=== PATIENT | male | born 1970 | race Caucasian/White ===

== ENCOUNTER → 2020-07-18 06:51 | Outpatient (CLI) | payer OTHER, SELFPAY ==
--- NOTE | 2020-07-18 | DI.ECHO.S_ITS ---
[facility]---------+ [facility] +---------+ : : [address] : [address] : : : : [id number] : : : : Phone: [phone]+ Echocardiogram Report + + :Name: WILLIE CHILDS Study Date: 07/18/2020 Height: 78 in : :[facility] Weight: 225 lb : : Gender: Male BSA: 2.4 m2 : :: 1970 Age: 49 yrs BP: 188/98 mmHg: :Reason For Study: Encounter for administrative examinations : :Ordering Physician: HETAL, : :PRASANNA Performed By: Juliana Newton : :Referring: PRASANNA FONG : + + Interpretation Summary The left ventricle is normal in size, wall thickness, and systolic function without any focal wall motion abnormality with the ejection fraction estimated at 55 to 60%. Diastolic function appears normal. The right ventricle appears normal. Pulmonary artery pressure cannot be estimated but CVP is likely around 3 mmHg. Both atria are normal in size. There is no significant valvular abnormality. This is a normal echocardiogram. It is notable with the patient was hypertensive at the time of the exam. Procedure: A two-dimensional transthoracic echocardiogram with color flow and Doppler was performed. The study quality was technically adequate. There is no prior echocardiogram noted for this patient. The patient was in sinus rhythm with heart rates between 55-70 bpm during the exam. Left Ventricle: The left ventricle appears normal in size, wall thickness, and systolic function without any focal wall motion abnormalities. The ejection fraction is estimated to be 55-60%. Diastolic parameters suggest probable normal left ventricular diastolic function and normal filling pressures. Right Ventricle: The right ventricle is normal in size and function. Atria: Both atria are normal in size. There is no Doppler evidence for an interatrial shunt. Mitral Valve: The mitral valve is normal in structure and function. There is no mitral regurgitation noted. Aortic Valve: The aortic valve is trileaflet. The aortic valve opens well. There is no aortic valve stenosis. No aortic regurgitation is present. Tricuspid Valve: The tricuspid valve is normal in structure and function. There is trace tricuspid regurgitation. Pulmonary artery pressures cannot be estimated because of the lack of a measurable TR jet velocity but the IVC suggests a CVP of around 3 mmHg. Pulmonic Valve: The pulmonic valve is not well visualized. There is no pulmonic valvular regurgitation. There is no significant valvular heart disease. Great Vessels: The aortic root is normal size. The ascending aorta could not be visualized. The IVC is of normal diameter and collapses greater than 50% with a sniff. This suggests a low right atrial pressure of 3 mm Hg. Pericardium/ Pleura There is no pericardial effusion. There is no pleural effusion. MMode/2D Measurements & Calculations LVIDd: 5.5 cm LVOT diam: 2.6 cm LVIDs: 3.7 cm Ao root diam: 3.6 cm FS: 32.2 % Ao Arch Diam (Prox Trans): 2.3 cm EPSS: 0.81 cm IVSd: 0.83 cm LVPWd: 1.0 cm LV lambert. diameter/BSA (cm/m^2): 2.3 LV sys. diameter/BSA (cm/m^2): 1.6 LA A2 area: 23.1 cm2 RA long axis: 4.9 cm LA A4 area: 15.5 cm2 RA area: 16.7 cm2 LA length (vol): 5.4 cm RA vol: 48.5 ml LA vol: 56.5 ml RA : 20.4 ml/m2 LA vol index: 23.8 ml/m2 IVC diam: 1.8 cm RVD1 (basal): 3.9 cm TAPSE: 2.2 cm Doppler Measurements & Calculations Ao V2 max: 139.9 cm/sec LVOT Max Moo: 80.1 cm/sec Ao V2 mean: 91.9 cm/sec LV V1 max P.6 mmHg Ao max P.8 mmHg LV V1 VTI: 16.0 cm Ao mean P.9 mmHg CINDY(I,D): 3.2 cm2 Ao V2 VTI: 27.3 cm CINDY(V,D): 3.1 cm2 sev ratio: 0.58 CINDY indexed to BSA (cm^2/m^2): 1.3 MV E max moo: 53.8 cm/sec PA V2 max: 65.9 cm/sec MV A max moo: 49.4 cm/sec PA V2 mean: 46.6 cm/sec MV E/A: 1.1 PA mean P.98 mmHg Med Peak E' Moo: 9.0 cm/sec PA pr(Accel): 19.1 mmHg E/E' med: 6.0 Lat Peak E' Moo: 11.6 cm/sec E/E' lat: 4.6 E/e' average: 5.3 MV dec time: 0.22 sec SV(LVOT): 87.2 ml Reading Physician:09:24 AM
== END ==
PROVIDERS: PCP Family Medicine; Referring Provider Family Medicine; Visit Provider Family Medicine
DX: Z02.9 Encounter for administrative examinations, unspecified (principal)
CPT/HCPCS: 93306

== ENCOUNTER → 2020-07-19 08:55 | Outpatient (CLI) | payer OTHER, SELFPAY ==
--- NOTE | 2020-07-26 17:13 | P.PFT.S_ITS ---
Pulmonary Function Test Referral & Results Date Patient Seen: 07/19/20 Requesting provider: Freddy Troncoso Results: The spirometry demonstrates an FVC of 7.03 L which is 107% of predicted. The FEV1 was measured at 4.39 L which is 86% of predicted. The FEV1/FVC ratio was 62 which is 79% of predicted. Interpretation: This study demonstrates perhaps very mild obstructive lung disease based on sl ight reduction FEV1. However FEV1/FVC ratio is normal and therefore this study could also be interpreted as normal. Clinical correlation suggested
== END ==
PROVIDERS: PCP Family Medicine; Referring Provider Family Medicine; Visit Provider Family Medicine
DX: Z02.9 Encounter for administrative examinations, unspecified (principal)
CPT/HCPCS: 94010

== ENCOUNTER → 2023-08-05 06:56 | Outpatient (CLI) | payer OTHER, SELFPAY | PROVIDERS: PCP Family Medicine; Referring Provider Nurse Practitioner Family; Visit Provider Nurse Practitioner Family | DX: Z02.89 Encounter for other administrative examinations (principal); J98.8 Other specified respiratory disorders | CPT/HCPCS: 94060; 94726; 94729 ==

== ENCOUNTER 2024-05-27 07:50 | Emergency (ER) | payer OTHER, SELFPAY ==
[2024-05-27 07:57] VITALS: BP 138/80; PULSE 75; RESP 16; TEMP 36.9; O2SAT 96; BMI 26.1
--- NOTE | 2024-05-27 08:03 | ED_ITS ---
HPI - URI/Sore Throat General Chief Complaint: Upper Respiratory Symptoms Stated Complaint: sore throat, difficulty swallowing Time Seen by Provider: 05/27/24 08:02 History of Present Illness HPI Narrative: Patient is a 53-year-old male with no significant past medical history coming in for complaints of sore throat ongoing and persistent the past 3 days. Denies any difficulty swallowing or breathing. States that he has been around a bunch of people with similar symptoms, he denies any other symptoms such as headache visual disturbances chest pain shortness breath fever chills nausea vomiting abdominal pain or any other GI/ symptoms at this time. Related Data Previous Rx's Medication Instructions Recorded pseudoephedrine HCl 60 mg tablet 60 mg PO Q6HP PRN #30 tabs 09/18/17 prednisone 20 mg tablet 20 mg PO BID 5 days #10 tabs 05/27/24 Allergies Allergy/AdvReac Type Severity Reaction Status Date / Time No Known Drug Allergies Allergy Verified 05/27/24 08:22 Review of Systems Review of Systems Narrative: HEENT: Positive sore throat Cardiovascular: Denies any chest pain, palpitations, shortness of breath, tachycardia Respiratory: Denies any shortness of breath, cough, wheeze, stridor GI/: Denies any abdominal pain, nausea, vomiting, diarrhea, bright red blood per rectum, melanotic stools, urinary frequency, urinary retention, dysuria, hematuria MSK: Denies any joint pain, muscle pains, swelling Skin: Denies any rashes, lesions, discoloration Neuro: Denies any headache, lightheadedness, dizziness, fainting, weakness Psych: Denies SI/HI Exam Narrative Exam Narrative: General: Cooperative, comfortable, well-developed, not in acute distress HEENT: Normocephalic, atraumatic, PERRLA, normal sclera, eyelids normal, patient with mild erythema to bilateral tonsils, patient without any voice change no trismus no stridor speaking in full sentences protecting airway Neck: Active full range of motion, atraumatic Chest: Normal to inspection, negative crepitus, no overlying erythema ecchymosis Respiratory: Normal respiratory effort, not in acute respiratory distress, clear to auscultation bilaterally negative cough, wheeze, tachypnea, rhonchi, rales Cardiology: Regular rate rhythm negative gallop, murmur, rubs GI/: Normal to inspection, soft, nonrigid, no tenderness to palpation, exam deferred MSK: Full range of active range of motion of all 4 extremities, atraumatic Skin: No rashes lesions noted Neuro: Alert awake oriented x3, moves all 4 extremities spontaneously, cranial nerves intact, able to answer all questions appropriately follows commands appropriately Psych: Cooperative, negative suicidal or homicidal ideations Initial Vital Signs Initial Vital Signs: Vital Signs Temperature 98.4 F 05/27/24 07:57 Pulse Rate 75 05/27/24 07:57 Respiratory Rate 16 05/27/24 07:57 Blood Pressure 138/80 05/27/24 07:57 Pulse Oximetry 96 05/27/24 07:57 Oxygen Delivery Method Room Air 05/27/24 07:57 Course Orders Ordered: ED Orders 05/27/24 08:25 Covid-19 + FLU A/B + RSV - PCR Stat Strep Grp A by PCR Rapid Stat Discontinued Medications Dexamethasone (Dexamethasone 10 Mg/Ml Vial) 10 mg PO NOW ONE Stop: 05/27/24 08:11 Last Admin: 05/27/24 08:27 Dose: 10 mg Documented By: CTS Ketorolac Tromethamine (Ketorolac 30 Mg/Ml Vial) 15 mg IM NOW ONE Stop: 05/27/24 08:11 Last Admin: 05/27/24 08:27 Dose: 15 mg Documented By: CTS Vital Signs Vital signs: Vital Signs - 8 hr 05/27/24 07:57 Temperature 98.4 F Pulse Rate 75 Respiratory Rate 16 Blood Pressure 138/80 Pulse Oximetry 96 Oxygen Delivery Method Room Air MDM - URI/Sore Throat Differential Diagnosis Differential diagnosis: Likely upper respiratory infection, viral infection, influenza and pharyngitis Lab Data Labs: Lab Results 05/27/24 Range/Units 08:25 SARS-CoV-2 (PCR) Negative (Negative) Influenza A (RT-PCR) Flu a negative (NEGATIVE) Influenza B (RT-PCR) Flu b negative (NEGATIVE) RSV (PCR) Negative (Negative) Group A Strep (PCR) Negative (Negative) [facility] Narrative Medical decision making narrative: Patient is a 53-year-old male no significant past medical history presented for sore throat, any difficulty swallowing, no voice changes no trismus no stridor, low suspicion for peritonsillar, retropharyngeal abscess. Patient is speaking in full sentences protecting airway, workup here showing negative for COVID flu and rapid strep. Patient was provided with NSAIDs and steroids for symptomatic relief with significant improvement. On repeat exam patient saying symptoms significantly improved, still without any voice change no trismus no stridor, symptoms more consistent with a viral pharyngitis. Strict return precautions were given to him home with oral steroids safe for discharge home outpatient follow-up Discharge Plan Departure Patient Disposition: Home Clinical Impression: Acute viral pharyngitis Activity Restrictions/Additional Instructions: Please read the discharge instructions sheet carefully and bring all papers to all doctor follow-up visits, as it may contain information that your doctor may want to see. Disease processes change and evolve, if your symptoms worsen or if you develop any new symptoms that are concerning to you please return for evalua tion. Your evaluation today does not show any evidence of any life- threatening/serious illnesses requiring admission to the hospital or surgery. Please follow-up with your doctor for re-evaluation in approximately 1 day. Seek immediate medical attention for any worrisome symptoms. Prescriptions: New prednisone 20 mg tablet 20 mg PO BID 5 Days Qty: 10 0RF No Action pseudoephedrine HCl 60 MG tablet 60 mg PO Q6HP PRNQty: 30 0RF Referrals: Shruti Llanes MD [Primary Care Provider] - Stand Alone Forms: Patient Portal/API
[2024-05-27] MEDS: DEXAMETHASONE 10 MG/ML VIAL PO (08:27)
[2024-05-27] MEDS: KETOROLAC 30 MG/ML VIAL 15 MG IM (08:27)
[2024-05-27 08:56] LABS: Strep Grp A by PCR Rapid Negative (Negative)
[2024-05-27 09:16] LABS: Influenza A - CEPHEID Flu A NEGATIVE (NEGATIVE); Influenza B - CEPHEID Flu B NEGATIVE (NEGATIVE); Respiratory Syncytial Virus Negative (Negative)
[2024-05-27 09:18] LABS: COVID-19 CEPHEID 4-PLEX PCR Negative (Negative)
[2024-05-27 09:33] VITALS: BP 120/68; PULSE 55; RESP 14; O2SAT 100
== END 2024-05-27 09:36 | disposition home or self-care (01) ==
PROVIDERS: Emergency Provider Student in an Organized Health Care Education/Training Program; PCP Family Medicine
DX: J02.9 Acute pharyngitis, unspecified (principal); Z11.52 Encounter for screening for COVID-19
CPT/HCPCS: 0241U; 87651; 96372; 99283; J1100; J1885